=== PATIENT | female | born 1970 | race American Indian/Alaskan Native ===

== ENCOUNTER 2018-03-22 10:13 | Inpatient (IN) | payer OTHER ==
[~2018-03-22 10:13] MED LIST: BICITRA PO ONE; PITOCin/NS 20 UNIT/1000ML DRIP 20 UNITS/1,000 ML BAG IV SCH
[2018-03-22 10:59] LABS: Basophils % (Auto) 0.6 % (0.0-1.8); Eosinophils # (Auto) 0.1 K/mm3 (0.0-0.4); Eosinophils % (Auto) 1.1 % (0.0-4.3); Hematocrit 41.3 % (30.3-42.9); Hemoglobin 14.6 gm/dl (10.1-14.3); Lymphocytes # (Auto) 1.6 K/mm3 (1.2-5.4); Lymphocytes % (Auto) 19.7 % (13.4-35.0); Mean Corpuscular HGB Conc 35 % (30-34); Mean Corpuscular Hemoglobin 31 pg (28-32); Mean Corpuscular Volume 88 fl (79-97); Monocytes # (Auto) 0.9 K/mm3 (0.0-0.8); Monocytes % (Auto) 11.1 % (0.0-7.3); Red Blood Count 4.68 M/mm3 (3.65-5.03); Red Cell Distribution Width 13.6 % (13.2-15.2)
[2018-03-22] MEDS ORDERED: ANCEF/STERILE WATER 2 GM/20 ML 2 GM/20 ML SYRINGE IV NR (11:00)
[2018-03-22] MEDS ORDERED: REGLAN IV ONE (11:00)
[2018-03-22] MEDS: LACTATED RINGERS 1,000 ML IV SCH ×2 (11:00→11:49)
[2018-03-22] MEDS ORDERED: BICITRA ONE (11:32)
[2018-03-22 11:42] LABS: Platelet Count 184 K/mm3 (140-440)
[2018-03-22] MEDS ORDERED: PEPCID IV ONE (12:00)
--- NOTE | 2018-03-22 12:05 | History and Physical Report ---
History of Present Illness Date of examination: 03/22/18 Date of admission: 03/22/18 10:13 Chief complaint: scheduled History of present illness: 48y/o @ 375 weeks who presents for a scheduled primary delivery per maternal medicine recommendation secondary to worsening chronic hypertension, thrombocytosis, prior myomectomy, and advanced maternal age. The patient has received medical treatment for her chronic hypertension during the . The patient initiated her care early in the first trimester of her . She has been followed throughout the by maternal medicine who recommended to proceed with delivery between 37 and 38 weeks. Past History Past Medical History: hypertension Past Surgical History: myomectomy OCCUP THERAPIST History: herpes Social history: - Obstetrical History Expected Date of Delivery: 04/07/18 Actual Gestation: 37 Week(s) 5 Day(s) : 1 Para: 0 Hx # Term Pregnancies: 0 Number of Pregnancies: 0 Spontaneous Abortions: 0 Induced : 0 Medications and Allergies Allergies Allergy/AdvReac Type Severity Reaction Status Date / Time Latex, Natural Rubber AdvReac Itching Verified 03/22/18 10:46 Active Meds: Active Medications Famotidine (Pepcid) 20 mg IV ONCE ONE Stop: 03/22/18 12:01 Last Admin: 03/22/18 11:49 Dose: 20 mg Cefazolin Sodium (Ancef/Sterile Water 2 Gm/20 Ml) 2 gm in 20 mls @ 80 mls/hr IV PREOP NR; Protocol Stop: 03/22/18 23:59 Lactated Ringer's (Lactated Ringers) 1,000 mls @ 2,250 mls/hr IV PREOP EMMANUEL Stop: 03/23/18 09:27 Last Admin: 03/22/18 11:49 Dose: 2,250 mls/hr Oxytocin/Sodium Chloride (Pitocin/Ns 20 Unit/1000ml Drip) 20 units in 1,000 mls @ 0 mls/hr IV TITR EMMANUEL Review of Systems All systems: negative Genitourinary: no vaginal bleeding, no leakage of fluid, no pelvic pain - Vital Signs Vital signs: Vital Signs Pulse BP Pulse Ox 95 H 125/80 96 03/22/18 10:57 03/22/18 10:57 03/22/18 10:57 Temp Pulse Resp BP Pulse Ox 97.2 F L 72 16 125/80 100 03/22/18 11:45 03/22/18 11:52 03/22/18 11:45 03/22/18 11:45 03/22/18 11:52 - Physical Exam Breasts: Positive: deferred Cardiovascular: Regular rate Lungs: Positive: Clear to auscultation Abdomen: Positive: normal appearance Results Result Diagrams: 03/22/18 10:31 Abnormal lab results 03/22/18 Range/Units 10:31 Hgb 14.6 H (10.1-14.3) gm/dl MCHC 35 H (30-34) % Brantley % (Auto) 11.1 H (0.0-7.3) % Brantley # 0.9 H (0.0-0.8) K/mm3 All other labs normal. Assessment and Plan - Patient Problems (1) Chronic hypertension affecting Current Visit: Yes Status: Acute Plan to address problem: Admit for scheduled primary delivery (2) Advanced maternal age (AMA) in Current Visit: Yes Status: Acute (3) History of uterine scar from previous surgery Current Visit: Yes Status: Acute
--- NOTE | 2018-03-22 12:06 | Procedure Note ---
OB Delivery Note - Delivery Date of Delivery: 03/22/18 Surgeon: MIKAYLA CHAUDHARY Estimated blood loss: 1000cc - Section Preop diagnosis: other (prior uterine surgery) section procedure: section, primary low transverse Disposition: PACU Complications: none - A at 1 minute: 4 at 5 minutes: 8 Gender: Female (weight 5lbs 10oz)
[2018-03-22] MEDS ORDERED: TORADOL IV PRN (12:08)
[2018-03-22] MEDS ORDERED: TUCKS PAD TP PRN (12:08)
[2018-03-22] MEDS ORDERED: NARCAN 0.4 MG/1 ML IV PRN ×2 (12:08→12:46)
[2018-03-22] MEDS ORDERED: ZOFRAN IV PRN ×2 (12:08→12:46)
[2018-03-22] MEDS ORDERED: LANSINOH TP PRN (12:08)
[2018-03-22] MEDS ORDERED: MORPHINE IV PRN (12:08)
[2018-03-22] MEDS ORDERED: TYLENOL PO PRN (12:08)
[2018-03-22] MEDS ORDERED: MILK OF MAGNESIA PO PRN (12:08)
--- NOTE | 2018-03-22 12:08 | Operative Report ---
Operative Report Operative Report: Date of surgery: 03/22/2018 Preoperative diagnosis: Chronic hypertension; advanced maternal age; prior myomectomy Postoperative diagnosis: Same as above; uterine fibroids; pelvic adhesions Procedure: Primary low-transverse delivery; lysis of adhesions Surgeon: Lindsay Armstrong M.D. Anesthesia: Regional Estimated blood loss: 1000 mL Findings: Liveborn female with Apgars of 4 and 8 weight 5 lbs. 10 oz.; Multiple uterine fibroids Indications: 48-year-old at 37+5 weeks with a history of chronic hypertension and myomectomy. The patient has been managed during the with medical therapy for her chronic hypertension. The patient has been followed throughout the by maternal medicine who recommends delivery of the patient is 2036 and 38 weeks estimated gestational age. Procedure: The patient was taken to the operating room and given regional anesthesia without complication. She was prepped and draped in a normal sterile fashion. A Pfannenstiel skin incision was made down to layer the fascia which was nicked in the midline extended laterally with the Bovie cautery. The superior aspect of the rectus fascia was grasped with Chioma clamps x2 and the rectus muscles off sharply. This was done in inferior fashion as well. The rectus muscle midline and peritoneum entered bluntly. There was noted to be adhesions of the uterus to the anterior abdominal wall. Lysis of adhesions had to be performed in order to facilitate placement of the Merlin. An Merlin retractor was then inserted. A bladder blade was placed. The vesicouterine peritoneum was then entered sharply with Metzenbaum scissors. A bladder flap was created digitally. A low transverse uterine incision was then made and extended digitally. The lower uterine segment was noted to be thickened secondary to non-laboring uterus. There was also evidence of a uterine fibroid in the lower uterine segment. Visualization was obscured during the hysterotomy secondary to bleeding coming from the myometrium. There was clear fluid upon entry into the uterine cavity. Secondary to undeveloped lower uterine segment, there was difficulty elevating the head through the incision. A Kiwi vacuum had to be placed for delivery of the . The head was delivered through the incision with fundal pressure. The cord was clamped and cut x2 and was passed off to pediatrics. The placenta was then manually extracted. The uterus was then exteriorized and cleared of clots and debris. Trailing membranes were noted and a sweep of the uterine cavity had to be performed. The uterine incision was then closed in a running locked fashion with 0 Vicryl additional imbricating stitch was applied for 2 layer closure. As noted earlier than was a 3 cm myoma in the lower uterine segment. The fibroid was noted to be fluctuant and incision was made into the fibroid with evidence of a degenerating leiomyoma. The posterior cul-de-sac was then copiously irrigated. The uterus was replaced back into the abdomen and pelvis were the gutters were then irrigated. The Merlin retractor was then removed. The peritoneum was then reapproximated with 3-0 Vicryl incorporating the rectus muscle. The fascia was then closed with 0 Vicryl in a running fashion. The skin was then reapproximated with 3-0 Monocryl on a Hans needle subcuticular fashion. Steri-Strips to place across the incision and a Crede procedures performed at the end of the surgery. A pressure dressing was applied to the incision. The surgery productive of a liveborn female with Apgars of 4 and 8 weight 5 lbs. 10 oz. The patient was taken to the recovery room in stable condition. All sponge laps and needle counts correct x2.
--- NOTE | 2018-03-22 12:45 | Anesthesia Consultation ---
Anesthesia Consult and Med Hx Date of service: 03/22/18 - Airway Anesthetic Teeth Evaluation: Good ROM Head & Neck: Adequate Mental/Hyoid Distance: Adequate Mallampati Class: Class II Intubation Access Assessment: Probably Good - Pre-Operative Health Status ASA Pre-Surgery Classification: ASA2 Proposed Anesthetic Plan: Epidural, Spinal - Pulmonary Hx Asthma: No COPD: No Hx Pneumonia: No - Cardiovascular System Hx Hypertension: Yes (h/o chronic hypertention) - Central Nervous System Hx Seizures: No Hx Psychiatric Problems: No - Endocrine Hx Renal Disease: No Hx End Stage Renal Disease: No Hx Hypothyroidism: No Hx Hyperthyroidism: No - Hematic Hx Anemia: No Hx Sickle Cell Disease: No - Other Systems Hx Alcohol Use: No
[2018-03-22] MEDS ORDERED: DILAUDID IV PRN (12:46)
[2018-03-22] MEDS ORDERED: BENADRYL IV PRN (12:46)
[2018-03-22] MEDS ORDERED: PHENERGAN PO PRN (12:46)
[2018-03-22] MEDS ORDERED: PHENERGAN PR PRN (12:46)
--- NOTE | 2018-03-22 12:46 | Anesthesia Day of Surgery ---
Anesthesia Day of Surgery - Day of Surgery Patient Examined: Yes Patient H&P Reviewed: Yes Patient is NPO: Yes
[2018-03-22] MEDS ORDERED: PITOCin/NS 20 UNIT/1000ML DRIP 20 UNITS/1,000 ML BAG IV SCH (13:00)
[2018-03-22] MEDS ORDERED: WATER FOR IRRIG STERILE IR ONE (13:00)
[2018-03-22] MEDS ORDERED: SODIUM CHLORIDE FLUSH SYRINGE 10 ML IV NR ×2 (13:00)
[2018-03-22] MEDS ORDERED: D5LR 1,000 ML IV SCH (13:00)
[2018-03-22] MEDS ORDERED: NACL 0.9% IR ONE (13:00)
[2018-03-22] MEDS ORDERED: NEO SYNEPHRINE/NS Syringe(OR USE) IV ONE ×2 (13:28→14:25)
[2018-03-22] MEDS ORDERED: XYLOCAINE MPF 2% ONE (13:29)
[2018-03-22] MEDS ORDERED: ASTRAMORPH PF 10MG/10ML ONE (13:54)
[2018-03-22] MEDS ORDERED: HESPAN 500 ML IV ONE (14:30)
[2018-03-22] MEDS ORDERED: LACTATED RINGERS 1,000 ML ONE (14:41)
[2018-03-22] MEDS: TORADOL IV PRN (18:01)
[2018-03-23] MEDS: TORADOL IV PRN (01:35)
[2018-03-23 03:23] LABS: Hemoglobin 9.1 gm/dl (10.1-14.3)
[2018-03-23] MEDS: LACTATED RINGERS 1,000 ML IV SCH (06:05)
--- NOTE | 2018-03-23 08:45 | Progress Note ---
Assessment and Plan - Patient Problems (1) Chronic hypertension affecting Current Visit: Yes Status: Acute Plan to address problem: patient doing well routine postoperative care (2) Advanced maternal age (AMA) in Current Visit: Yes Status: Acute (3) History of uterine scar from previous surgery Current Visit: Yes Status: Acute Subjective - Subjective Date of service: 03/23/18 Interval history: Patient doing well. She reports that her pain is better controlled. Hernandez has been removed but she has not voided as of yet. Patient reports: pain well controlled : doing well Objective - Vital Signs Latest vital signs: Vital Signs Temp Pulse Resp BP BP Pulse Ox 03/22/18 20:21 69 98 03/22/18 20:20 80 18 116/73 96 03/22/18 16:35 97.8 F 84 12 129/70 98 03/22/18 15:40 76 14 113/70 100 03/22/18 15:35 75 14 116/68 100 03/22/18 15:20 70 14 111/62 98 03/22/18 15:15 72 18 114/66 98 03/22/18 15:00 67 14 103/59 98 03/22/18 14:55 67 14 94/55 98 03/22/18 14:50 65 14 90/52 98 03/22/18 14:45 69 16 87/51 98 03/22/18 14:40 69 16 79/43 98 03/22/18 14:35 69 16 69/41 98 03/22/18 14:30 66 16 72/41 98 03/22/18 14:24 97.6 F 65 16 77/47 03/22/18 11:52 72 100 03/22/18 11:47 72 99 03/22/18 11:45 97.2 F L 72 16 125/80 96 03/22/18 10:57 95 H 125/80 96 Intake and Output 03/22/18 03/23/18 03/23/18 22:59 06:59 14:59 Intake Total 125 1000 Output Total 100 Balance 25 1000 Intake: IV 125 1000 D5lr 1,000 ml @ 125 mls/ 1000 hr IV DIRECT EMMANUEL Rx#: [id number] Left 125 Output: Urine 100 Other: Estimated Blood Loss 1,000 - Exam Uterus: Present: normal Incision: Present: dressed - Labs Labs: Abnormal lab results 03/22/18 03/23/18 Range/Units 10:31 02:59 Hgb 14.6 H 9.1 L D (10.1-14.3) gm/dl Hct 26.0 L D (30.3-42.9) % MCHC 35 H (30-34) % Robeson % (Auto) 11.1 H (0.0-7.3) % Robeson # 0.9 H (0.0-0.8) K/mm3
[2018-03-23] MEDS: PERCOCET 5/325 PO PRN ×3 (10:55→20:50)
[2018-03-23] MEDS: MYLICON PO PRN (20:49)
[2018-03-23] MEDS: MOTRIN PO PRN (20:50)
[2018-03-24] MEDS: MOTRIN PO PRN ×3 (03:33→17:04)
[2018-03-24] MEDS: MYLICON PO PRN ×3 (03:33→17:03)
[2018-03-24] MEDS: PERCOCET 5/325 PO PRN ×4 (03:34→22:06)
[2018-03-24] MEDS ORDERED: M-M-R II VACCINE SUB-Q ONE (13:30)
--- NOTE | 2018-03-24 16:07 | Cat Scan Report ---
FINAL REPORT EXAM: CT CHEST W CON HISTORY: irregular mass inferior to sternum, recent c-sect COMPARISON: None. TECHNIQUE: Multiple contiguous axial images were obtained from the thoracic inlet to upper abdomen after administration of IV contrast. Reformatted sagittal and coronal images were available for review. FINDINGS: Medical devices: None. Thyroid: 5 millimeter hypodense nodule in the left thyroid lobe. Lymph nodes: No significant mediastinal, hilar, or axillary lymphadenopathy. Vasculature: Normal caliber of the thoracic aorta. Conventional branching pattern of the aortic arch. Normal appearance of the pulmonary artery. Heart: Normal heart size. Other mediastinal structures: Normal. Lung parenchyma: No suspicious nodule or mass. No focal consolidation. Airways: Patent. No bronchiectasis. Pleura: No pleural effusion or pneumothorax. Chest wall and spine: No suspicious osseous lesions. No acute fracture or dislocation. The sternum is normal in appearance. There is no mass lesion or fluid collection associated with the sternum dot Upper Abdomen: There are foci of free air in the abdomen, which are likely related to the patient's recent section. IMPRESSION: No acute intrathoracic pathology. Foci of free air in the abdomen, likely related to the patient's recent section. No mass or fluid collection inferior to the sternum. The sternum is normal in appearance.
[2018-03-24] MEDS: MILK OF MAGNESIA PO SCH ×2 (17:03→22:08)
--- NOTE | 2018-03-24 20:18 | Progress Note ---
Assessment and Plan A: POD#2 s/p primary section; Concern for chest wall mass, Chronic HTN P: Chest CT with contrast, bowel regimen, continue to monitor clinically Subjective - Subjective Date of service: 03/24/18 Principal diagnosis: s/p primary section Interval history: Pt with no overnight events. No flatus. Baby in NICU since last night for poor feeding. Patient reports: appetite normal, pain well controlled, ambulating normally, no flatus, no bowel movement, no nauseated Mittie: in NICU Objective - Vital Signs Latest vital signs: Vital Signs Temp Pulse Resp BP BP Pulse Ox 03/24/18 16:58 97.7 F 83 18 127/91 03/24/18 08:48 97.2 F L 79 18 138/73 03/24/18 03:34 18 03/24/18 03:33 18 03/24/18 00:27 98.3 F 79 20 102/51 95 03/23/18 20:50 18 Intake and Output 03/24/18 03/24/18 03/24/18 06:59 14:59 22:59 Intake Total 240 120 Balance 240 120 Intake: Oral 240 120 Other: Total, Intake Amount 240 120 - Exam Breasts: Present: deferred Cardiovascular: Present: Regular rate Lungs: Present: Clear to auscultation Abdomen: Present: soft, distention, abnormal bowel sounds (hypoactive bowel sounds ) Uterus: Present: fundal height above umbilicus Extremities: Present: normal Incision: Present: dressed
[2018-03-25] MEDS: PERCOCET 5/325 PO PRN ×3 (04:00→16:36)
[2018-03-25] MEDS: MOTRIN PO PRN ×3 (04:02→16:37)
[2018-03-25] MEDS: MYLICON PO PRN ×3 (04:03→16:38)
[2018-03-25] MEDS ORDERED: BOOSTRIX IM ONE (06:00)
[2018-03-25] MEDS: MILK OF MAGNESIA PO SCH ×4 (06:24→18:06)
[2018-03-25 08:01] LABS: Hemoglobin 9.2 gm/dl (10.1-14.3)
--- NOTE | 2018-03-25 16:03 | Progress Note ---
Assessment and Plan A: POD#3 s/p primary section; Concern for chest wall mass- normal chest CT, Chronic HTN P: Discharge today with follow up in 1 week for BP check. Subjective - Subjective Date of service: 03/25/18 Principal diagnosis: s/p primary section Interval history: Pt with no overnight events. No flatus. Baby out of NICU now and feeding well. She would like to go home. She has been passing flatus. Chest CT WNL. Patient reports: appetite normal, voiding normally, pain well controlled, flatus , ambulating normally, no dizzy ambulation, no bowel movement, no nauseated : doing well Objective - Vital Signs Latest vital signs: Vital Signs Temp Pulse Resp BP BP Pulse Ox 03/25/18 07:56 98.4 F 78 20 110/71 96 03/25/18 01:54 98.5 F 75 18 113/56 96 03/24/18 16:58 97.7 F 83 18 127/91 Intake and Output 03/25/18 03/25/18 03/25/18 06:59 14:59 22:59 Intake Total 240 Balance 240 Intake: Oral 240 Other: Total, Intake Amount 240 # Voids Void 1 - Exam Breasts: Present: deferred Cardiovascular: Present: Regular rate Lungs: Present: Clear to auscultation Abdomen: Present: soft, normal bowel sounds Uterus: Present: fundal height below umbilicus Extremities: Present: edema (trace) Incision: Present: intact - Labs Labs: Abnormal lab results 03/25/18 Range/Units 07:23 Hgb 9.2 L (10.1-14.3) gm/dl Hct 27.0 L (30.3-42.9) %
--- NOTE | 2018-03-25 16:05 | Discharge Summary ---
Providers - Providers Date of Admission: 03/22/18 10:13 Date of discharge: 03/25/18 Attending physician: ANTHONY FONTANA Primary care physician: SAMARIA JEFFERSON MD Hospitalization Reason for admission: section Delivery: Procedure: section, primary low transverse, other (Lysis of Adhesions ) Procedure details: Please see operative report Incision: intact Other procedures: none complications: none Discharge diagnosis: IUP at term delivered baby: female Hospital course: Patient was admitted for scheduled section secondary to previous myomectomy which she tolerated well. The remainder of her postoperative course was uncomplicated other than a finding of a subcutaneous mass beneath the sternum. A chest CT revealed no such mass on the imaging study. The patient is encouraged to follow up her concern for a chest mass with an multimedia designer and to follow-up with Dr. Fontana in 1 week for blood pressure check. Condition at discharge: Stable Disposition: DC-[id number] TO HOME OR SELFCARE - Discharge Diagnoses (1) Term of female Status: Acute (2) delivery delivered Status: Acute (3) Advanced maternal age (AMA) in Status: Acute (4) Chronic hypertension affecting Status: Acute (5) History of uterine scar from previous surgery Status: Acute Plan - Discharge Medications Prescriptions: Docusate Sodium [Colace] 100 mg PO BID PRN #60 capsule PRN Reason: Constipation Ferrous Sulfate [Feosol 325 MG tab] 325 mg PO BID #60 tablet Ibuprofen [Motrin] 800 mg PO Q8HR PRN #60 tablet PRN Reason: Pain , Severe (7-10) Oxycodone HCl/Acetaminophen [Percocet 7.5/325 mg] 1 each PO Q6HR PRN #45 tablet PRN Reason: Pain - Provider Discharge Summary Activity: routine, no sex for 6 weeks, no heavy lifting 4 weeks, no strenuous exercise Diet: routine Instructions: routine Additional instructions: [] Smoking cessation referral if applicable(refer to patient education folder for contact #) [] Refer to [facility] Booklet Call your doctor immediately for: * Fever > 100.5 * Heavy vaginal bleeding ( >1 pad per hour) * Severe persistent headache * Shortness of breath * Reddened, hot, painful area to leg or breast * Drainage or odor from incision. * Keep incision clean and dry at all times and follow doctor's instructions regarding bathing/showering - Follow up plan Follow up: ANTHONY FONTANA MD [Staff Physician] - 03/28/18 (Please follow up at scheduled blood pressure check. )
[2018-03-25 19:58] VITALS: BP 127/63
== END 2018-03-25 18:30 | disposition home or self-care (01) | DRG 765 ==
LOC: LD 10:13 → OB 15:48
PROVIDERS: ADMIT Obstetrics & Gynecology; ATTEND Obstetrics & Gynecology
PROC: 10D00Z1 Extraction of Products of Conception, Low, Open Approach (ICD-10-PCS; principal; 2018-03-22)
PROC: 3E0234Z Introduction of Serum, Toxoid and Vaccine into Muscle, Percutaneous Approach (ICD-10-PCS; 2018-03-24)
DX: O34.13 Maternal care for benign tumor of corpus uteri, third trimester (principal); O10.92 Unspecified pre-existing hypertension complicating childbirth; Z3A.37 37 weeks gestation of pregnancy; Z37.0 Single live birth; D25.9 Leiomyoma of uterus, unspecified; Z23 Encounter for immunization; R22.2 Localized swelling, mass and lump, trunk; O90.89 Other complications of the puerperium, not elsewhere classified
CPT/HCPCS: 36415; 71260; 85014; 85018; 85025; 86850; 86900; 86901; 90715; 99211; G0463; J0690; J1170; J1885; J2270; J2274; J2370; J2405; J2590; J2765; J7120; J7121; Q9967